=== PATIENT | male | born 1980 | race Caucasian/White ===

== ENCOUNTER 2016-09-01 21:25 | Emergency (ER) | payer BC ==
[~2016-09-01 21:25] MED LIST: CATAPRES 0.1MG0.1 MG PO; COZAAR25 MG PO; ECOTRIN81 MG PO; LANTUS100 UNIT/1 SQ; LIPITOR20 MG PO; LOPRESSOR50 MG PO; NITROSTAT 0.40.4 MG SL; PROTONIX40 MG PO
== END 2016-09-01 22:36 | disposition home or self-care (01) ==
LOC: ER1 21:25
DX: K02.9 Dental caries, unspecified (principal); R22.0 Localized swelling, mass and lump, head; R50.9 Fever, unspecified; E11.9 Type 2 diabetes mellitus without complications
CPT/HCPCS: 99283

== ENCOUNTER 2016-12-16 13:13 | Emergency (ER) | payer OTHER | END 2016-12-16 13:59 | disposition home or self-care (01) | LOC: ER1 13:13 | DX: S01.511A Laceration without foreign body of lip, initial encounter (principal); X58.XXXA Exposure to other specified factors, initial encounter; Z79.4 Long term (current) use of insulin | CPT/HCPCS: 12011; 99283 ==